=== PATIENT | male | born 2005 | race Two or more races ===

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

== ENCOUNTER 2024-02-29 19:36 | Emergency (ER) | payer SELFPAY | END 2024-02-29 20:33 | disposition home or self-care (01) | LOC: JP.ED 19:36 | DX: K04.7 Periapical abscess without sinus (principal); F17.210 Nicotine dependence, cigarettes, uncomplicated; Z86.16 Personal history of COVID-19 | CPT/HCPCS: 99282; 99283 ==

== ENCOUNTER 2024-03-01 18:12 | Emergency (ER) | payer SELFPAY | END 2024-03-01 19:48 | disposition home or self-care (01) | LOC: JP.ED 18:12 | DX: K04.7 Periapical abscess without sinus (principal); F17.210 Nicotine dependence, cigarettes, uncomplicated; Z86.16 Personal history of COVID-19 | CPT/HCPCS: 99282; 99283 ==